=== PATIENT | male | born 1970 | race Two or more races ===

== ENCOUNTER → 2017-10-17 | Outpatient (CLI) | payer BC ==
[2017-10-17 09:02] LABS: Basophils # (auto) 0.1 uL; Eosinophils # (auto) 0.3 uL; Eosinophils % (auto) 4.4 % (0.0-7.0); Hematocrit 44.5 % (41.0-53.0); Hemoglobin 15.4 g/dL (13.5-17.5); Lymphocytes # (auto) 1.9 uL; Lymphocytes % (auto) 32.7 % (10.0-50.0); Mean Corpuscular Hemoglobin 28.7 pg (28.0-32.0); Mean Corpuscular Hgb Conc. 34.6 g/dL (32.0-36.0); Mean Corpuscular Volume 83.1 fL (80.0-100.0); Monocytes # (auto) 0.4 uL; Neutrophils # (auto) 3.3 uL; Neutrophils % (auto) 55.9 % (37.0-80.0); Nucleated Red Blood Cells % 0.1 %; Platelet Count (auto) 227 10^3/uL (140-450); Red Blood Cells 5.35 10^6/uL (4.5-5.90); Red Cell Distribution Width 13.3 % (11.8-14.3); White Blood Cell 5.9 10^3/uL (4.4-10.8)
[2017-10-17 09:31] LABS: Urine Bacteria NONE SEEN /hpf (None Seen); Urine Blood Negative /uL (Negative); Urine Mucus FEW (None Seen); Urine Specific Gravity 1.028 (1.001-1.035); Urine WBC 1 /hpf (0 - 3)
[2017-10-17 09:57] LABS: Free T4 (Free Thyroxine) 1.18 ng/dL (0.89-1.76); Prostate Specific Antigen 0.79 ng/mL (0.0-4.0)
[2017-10-17 10:00] LABS: Albumin 3.7 g/dL (3.4-5.0); BUN/Creatinine Ratio 19.4; Bilirubin, Total 0.8 mg/dL (0.2-1.0); Calcium 8.6 mg/dL (8.5-10.1); Potassium 4.4 mmol/L (3.5-5.1); Total Protein 7.8 g/dL (6.4-8.2)
== END | disposition home or self-care (01) ==
LOC: LAB 08:38
PROVIDERS: ATTEND Internal Medicine
DX: R73.03 Prediabetes (principal)
CPT/HCPCS: 36415; 80053; 80061; 81001; 82043; 83036; 84153; 84439; 84443; 85025; 85652